=== PATIENT | male | born 1975 | race Caucasian/White ===

== ENCOUNTER 2018-12-13 21:16 | Emergency (ER) | payer OTHER, BC ==
[~2018-12-13] VITALS: Ht 167.6 cm; Wt 77.1 kg
--- NOTE | 2018-12-13 21:30 | NUR ---
PT BIBSELF C/O +SI - HI, HEARING VOICES, PLANS TO STAB SELF, PT ALSO MENTIONED HE HAS MISSED 2 DAYS OF MEDICATION D/T LEAVING MEDICATION IN [place] (HOME). PT AOX4 RR EVEN AND UNLABORED. NO SOB NOTED. NO NVD AT THIS TIME. PT GOWNED, PERSONAL BELONGINGS PLACED IN LOCKER, PT PLACED ON SUICIDE PRECAUTION. SITTER WITHIN VISUAL SIGHT. PT NOTED WITH SUPERFICAL CUT ON RIGHT ABD. BLOOD DRAWN PER LAB.
[2018-12-13 21:35] LABS: BASOPHILS % (AUTO) 0.5 % (0.0-2.0); EOSINOPHILS % (AUTO) 0.3 % (0.0-6.0); HEMATOCRIT 43 % (39-51); HEMOGLOBIN 15.3 g/dL (13.5-17.5); LYMPHOCYTES # (AUTO) 2.1 /CMM (0.8-4.8); LYMPHOCYTES % (AUTO) 25.9 % (20.0-44.0); MEAN CORPUSCULAR HGB CONC 35 g/dl (31.0-36.0); MEAN CORPUSCULAR VOLUME 89 fL (80-96); MONOCYTES # (AUTO) 0.7 /CMM (0.1-1.30); MONOCYTES % (AUTO) 8.6 % (2.0-12.0); NEUTROPHILS # (AUTO) 5.4 /CMM (1.8-8.9); NEUTROPHILS % (AUTO) 64.7 % (43.0-81.0); PLATELET COUNT (AUTO) 286 /CMM (150-450); RED BLOOD CELL COUNT(AUTO) 4.87 MIL/uL (4.5-6.0); WHITE BLOOD COUNT (AUTO) 8.3 K/uL (4.3-11.0)
[2018-12-13 21:43] LABS: CARBON DIOXIDE 27 mmol/L (21-32); CHLORIDE 106 mmol/L (98-107); CREATININE 1.2 mg/dL (0.6-1.3); GLUCOSE 101 mg/dL (74-106); POTASSIUM 3.9 mmol/L (3.5-5.1); SODIUM SERUM 147 mmol/L (136-145); UREA NITROGEN, BLOOD 8 mg/dL (7-18)
[2018-12-13 21:48] LABS: ALANINE AMINOTRANSFERASE 18 U/L (12-78); ALBUMIN 4.7 g/dL (3.4-5.0); ALCOHOL, BLOOD 118 mg/dL (0-0); ALKALINE PHOSPHATASE 101 U/L (46-116); ASPARTATE AMINOTRANSFERASE 13 U/L (15-37); BILIRUBIN,DIRECT 0.1 mg/dL (0.0-0.2); BILIRUBIN,TOTAL 0.4 mg/dL (0.2-1.0); SALICYLATE 6.5 mg/dL (2.8-20.0); TOTAL PROTEIN, SERUM 7.7 g/dL (6.4-8.2)
[2018-12-13 21:49] LABS: ACETAMINOPHEN < 10 ug/ml (10-30)
[2018-12-13 21:57] LABS: APPEARANCE,URINE Clear (CLEAR); BILIRUBIN,URINE Negative (NEGATIVE); BLOOD, URINE Negative Ery/uL (NEGATIVE); COLOR,URINE Yellow (YELLOW); KETONES,URINE Trace (NEGATIVE); LEUKOCYTE ESTERASE ,URINE Negative (NEGATIVE); NITRITE, URINE Negative (NEGATIVE); PROTEIN,URINE Negative (NEGATIVE); UGLUCOSE Negative (NEGATIVE); UROBILINOGEN,URINE 0.2 EU/dL (0.2)
[2018-12-13] MEDS ORDERED: OLANZAPINE 5 MG TABLET ONE (22:51)
[2018-12-13] MEDS ORDERED: OLANZAPINE 5 MG TABLET PO ONE (23:00)
--- NOTE | 2018-12-13 23:30 | NUR ---
CALLED STUDY ASSISTANT FARHAT FOR THIS PATIENT
--- NOTE | 2018-12-14 00:07 | NUR ---
[facility] ETA 1 HR
--- NOTE | 2018-12-14 00:20 | NUR ---
report recieved and assumed care for patient. patient seen in no apparent distress. patient denies having si at this time. pt states "Im feeling better. Just waiting to go home. at the bedside. poc reviewed questions concerns addressed. patient is awaiting psych eval to be performed.
--- NOTE | 2018-12-14 01:31 | NUR ---
Yess[facility] from [facility] in to see the patient.
[2018-12-14] MEDS ORDERED: LamoTRIgine 100 MG TABLET PO SCH (02:00)
[2018-12-14] MEDS ORDERED: DULOXETINE HCL 30 MG CAPSULE.DR PO ONE (02:00)
[2018-12-14] MEDS ORDERED: TRAZODONE 50 MG TABLET PO ONE (02:00)
[2018-12-14] MEDS ORDERED: DULOXETINE HCL 30 MG CAPSULE.DR ONE (02:02)
[2018-12-14] MEDS ORDERED: TRAZODONE 50 MG TABLET ONE (02:03)
[2018-12-14] MEDS ORDERED: LamoTRIgine 100 MG TABLET ONE (02:09)
--- NOTE | 2018-12-14 02:38 | NUR ---
CALLED SAURABHYADI, AWARE PT IS CLEARED FOR DISCHARGE. TO [facility]DE PT 7AM.
--- NOTE | 2018-12-14 05:47 | NUR ---
called brad to confirm pickup this am. she states she is on her way! patient currently sleeping in no apparent distress.
[2018-12-14 06:12] VITALS: BP 124/94
--- NOTE | 2018-12-14 06:14 | NUR ---
Patient discharged to home in stable condition. at the bedside to sweet pickle maker the patient. patient denies having any suicidal thoughts at this time. Written and verbal after care instructions given. Patient and verbalizes understanding of instruction. patient given new prescriptions to be filled and patient and confirm resources alng their route that can help if another episode occurs on their journey home.
== END 2018-12-14 06:12 | disposition home or self-care (01) ==
LOC: ER 21:24
DX: F99 Mental disorder, not otherwise specified (principal); G89.29 Other chronic pain; F32.9 Major depressive disorder, single episode, unspecified; F41.9 Anxiety disorder, unspecified
CPT/HCPCS: 36415; 80048; 80076; 80305; 80307; 80329; 81001; 85025; 99284; G0480; 81000-TC